=== PATIENT | female | born 1990 | race African-American/Black ===

== ENCOUNTER 2019-10-26 10:33 | Observation (INO) ==
[2019-10-26 11:58] LABS: Basophils % 0.4 % (0.0-0.8); Eosinophils # 0.2 10*3/uL (0.0-0.87); Eosinophils % 1.8 % (0.00-10.9); Hematocrit 37.2 VOL% (35.7-47.0); Hemoglobin 11.2 GM/DL (12.0-16.0); Immature Granulocytes % 0.4 %; Immature Granulocytes Absolute 0.04 #; Lymphocytes # 3.3 10*3/uL (1.4-4.0); Lymphocytes % 30.7 % (21.3-54.2); Mean Corpuscular HGB Conc 30.1 GM/DL (32-36); Mean Corpuscular Volume 81.6 FL (87-102); Mean Platelet Volume 9.6 FL (9.6-12.0); Monocytes % 7.1 % (1.7-12.7); Neutrophils % 59.6 % (38.7-73.9); Platelet Count 346 T/CUMM (130-400); Red Blood Count 4.56 MC/CUMM (3.8-5.5); Red Cell Distribution Width 13.9 % (9.3-17.3); White Blood Count 10.8 T/CUMM (4-12)
[2019-10-26 12:18] LABS: Alanine Aminotransferase 12 U/L (13-56); Albumin 2.9 G/DL (3.4-5.0); Alkaline Phosphatase 56 U/L (45-117); Aspartate Amino Transferase 10 U/L (0-37); Bilirubin,Total < 0.39 MG/DL (0.2-1.0); Blood Urea Nitrogen 8 MG/DL (7-18); Estimated Glom Filtration Rate 157 ML/MIN; Glucose 70 MG/DL (74-106); Osmolality,Calculated 272.5 MOS/KG (273-304); Total Protein 6.5 G/DL (6.4-8.3)
[2019-10-26 13:10] LABS: Apearance,Urine CLEAR (Clear); Bacteria,Urine Occasional /HPF (Few); Bilirubin,Urine Negative (Negative); Blood, Urine Negative (Negative); Glucose,Urine (UA) Negative (Negative); Ketones,Urine Negative (Negative); Nitrite,Urine Negative (Negative); Protein,Urine Negative; RBC,Urine 3 /HPF (0-4); Squamous Epithelial Cell,Urine Occasional /HPF (0-10); Urine Color Yellow (Yellow); Urine Specific Gravity 1.018 (1.001-1.035); Urine Urobilinogen < 2.0 EU/DL (0.2-1.0); WBC,Urine <1 /HPF (0-6)
[2019-10-26] MEDS ORDERED: MORPHINE 4 MG/1 ML VIAL IV STA (13:14)
[2019-10-26] MEDS ORDERED: ONDANSETRON 4 MG/2 ML VIAL IV STA (13:14)
[2019-10-26 14:48] LABS: Barbiturates Screen,Urine Negative (Negative); Benzodiazepines Screen,Urine Negative (Negative); Cannabinoid Screen,Urine Positive (Negative); Opiate Screen,Urine Negative (Negative); Phencyclidine Screen,Urine Negative (Negative)
[2019-10-26] MEDS ORDERED: ACETAMINOPHEN 325 MG TABLET PO PRN (14:50)
[2019-10-26] MEDS ORDERED: KETOROLAC 15 MG/1 ML VIAL IV PRN (14:50)
[2019-10-26] MEDS ORDERED: ONDANSETRON 4 MG/2 ML VIAL IV PRN (14:50)
[2019-10-26] MEDS: LACTATED RINGERS 1,000 ML IV SCH (17:07)
[2019-10-26] MEDS: amLODIPine 5 MG TABLET PO SCH (17:07)
[2019-10-26] MEDS: PIPERACILLIN/TAZOBACTAM 3,375 MG in SODIUM CHLORIDE 0.9% 100 ML IV SCH ×2 (17:07→22:45)
[2019-10-26] MEDS: DOCUSATE SODIUM 100 MG CAPSULE PO SCH (22:26)
[2019-10-26] MEDS: MAGNESIUM CITRATE 300 ML BOTTLE PO SCH (22:27)
[2019-10-27 03:57] LABS: Basophils % 0.3 % (0.0-0.8); Eosinophils # 0.3 10*3/uL (0.0-0.87); Eosinophils % 2.8 % (0.00-10.9); Hematocrit 34.1 VOL% (35.7-47.0); Hemoglobin 10.3 GM/DL (12.0-16.0); Immature Granulocytes % 0.2 %; Immature Granulocytes Absolute 0.02 #; Lymphocytes # 3.7 10*3/uL (1.4-4.0); Lymphocytes % 39.4 % (21.3-54.2); Mean Corpuscular HGB Conc 30.2 GM/DL (32-36); Mean Corpuscular Volume 79.7 FL (87-102); Mean Platelet Volume 10.6 FL (9.6-12.0); Monocytes % 6.7 % (1.7-12.7); Neutrophils % 50.6 % (38.7-73.9); Platelet Count 335 T/CUMM (130-400); Red Blood Count 4.28 MC/CUMM (3.8-5.5); White Blood Count 9.4 T/CUMM (4-12)
[2019-10-27 04:24] LABS: Albumin 2.5 G/DL (3.4-5.0); Bilirubin,Total 0.5 MG/DL (0.2-1.0); Calcium 8.4 MG/DL (8.5-10.1); Osmolality,Calculated 275.5 MOS/KG (273-304); Total Protein 5.7 G/DL (6.4-8.3)
[2019-10-27] MEDS: LACTATED RINGERS 1,000 ML IV SCH ×2 (05:47→21:58)
[2019-10-27] MEDS: PIPERACILLIN/TAZOBACTAM 3,375 MG in SODIUM CHLORIDE 0.9% 100 ML IV SCH ×2 (06:00→15:34)
[2019-10-27] MEDS ORDERED: PANTOPRAZOLE 40 MG TABLET PO SCH (09:00)
[2019-10-27] MEDS: amLODIPine 5 MG TABLET PO SCH (15:37)
[2019-10-27] MEDS: DOCUSATE SODIUM 100 MG CAPSULE PO SCH ×2 (15:37→21:55)
[2019-10-27] MEDS: MAGNESIUM CITRATE 300 ML BOTTLE PO SCH ×2 (15:37→21:54)
[2019-10-28] MEDS: PIPERACILLIN/TAZOBACTAM 3,375 MG in SODIUM CHLORIDE 0.9% 100 ML IV SCH ×2 (00:07→07:22)
[2019-10-28] MEDS ORDERED: LACTATED RINGERS 1,000 ML IV SCH (08:00)
[2019-10-28] MEDS ORDERED: propofoL 200 MG/20 ML VIAL IV ONE (09:00)
[2019-10-28] MEDS ORDERED: LIDOCAINE 100 MG/5 ML SYRINGE ONE (09:00)
[2019-10-28 12:21] VITALS: BP 126/82
[2019-10-28 14:42] LABS: Hepatitis B Core IgM Quant 0.14 Index; Hepatitis B Surface Ag Quant < 0.10 Index; Hepatitis B Surface Ag Result Negative (Negative); Hepatitis C Virus Ab Quant < 0.02 Index; Hepatitis C Virus Ab Result Negative (Negative)
[2019-11-04 17:10] LABS: Alpha-1-Antitrypsin, Serum 153 mg/dL (100 - 190)
== END 2019-10-28 16:30 | disposition home or self-care (01) ==
LOC: N.EDINP 10:33 → N.ED 10:33 → N.EDINP 15:50 → N.2W 16:27
PROVIDERS: ADMIT Surgery; ATTEND Surgery

== ENCOUNTER 2021-06-17 13:10 | Inpatient (IN) ==
[2021-06-17] MEDS ORDERED: ONDANSETRON 4 MG/2 ML VIAL IV STA ×2 (14:03→19:56)
[2021-06-17] MEDS ORDERED: HYDROmorphone 2 MG/1 ML VIAL IV STA ×2 (14:03→19:57)
[2021-06-17] MEDS ORDERED: SODIUM CHLORIDE 0.9% 1,000 ML IV STA ×2 (14:03→16:06)
[2021-06-17 15:50] LABS: Bilirubin,Urine Negative (Negative); Blood, Urine Negative (Negative); Glucose,Urine (UA) Negative (Negative); Hyaline Casts,Urine 1 /LPF (0-3); Ketones,Urine Negative (Negative); Mucus,Urine Few /LPF (Occasional); Nitrite,Urine Negative (Negative); Protein,Urine Negative; RBC,Urine 3 /HPF (0-4); Squamous Epithelial Cell,Urine Occasional /HPF (0-10); Urine Appearance CLEAR (Clear); Urine Color Yellow (Yellow); Urine Specific Gravity 1.025 (1.001-1.035)
[2021-06-17 16:00] LABS: Alanine Aminotransferase 10 U/L (13-56); Albumin 3.3 G/DL (3.4-5.0); Alkaline Phosphatase 61 U/L (45-117); Aspartate Amino Transferase 10 U/L (0-37); Bilirubin,Total < 0.39 MG/DL (0.20-1.00); Blood Urea Nitrogen 9 MG/DL (7-18); Calcium 8.8 MG/DL (8.5-10.1); Carbon Dioxide 26 MMOL/L (21-32); Estimated Glom Filtration Rate 130 ML/MIN; Glucose 81 MG/DL (74-106); Osmolality,Calculated 274.5 MOS/KG (273-304); Potassium 3.9 MMOL/L (3.5-5.1); Sodium 139 MMOL/L (136-145); Total Protein 7.1 G/DL (6.4-8.2)
[2021-06-17 16:03] LABS: Basophils % 0.3 % (0.0-0.8); Eosinophils # 0.1 10*3/uL (0.0-0.87); Eosinophils % 1.3 % (0.00-10.9); Hematocrit 34.1 VOL% (35.7-47.0); Hemoglobin 10.5 GM/DL (12.0-16.0); Immature Granulocytes % 0.3 %; Immature Granulocytes Absolute 0.03 #; Lymphocytes # 2.7 10*3/uL (1.4-4.0); Lymphocytes % 30.3 % (21.3-54.2); Mean Corpuscular HGB Conc 30.8 GM/DL (32-36); Mean Corpuscular Volume 75.1 FL (87-102); Mean Platelet Volume 10.9 FL (9.6-12.0); Monocytes % 5.8 % (1.7-12.7); Platelet Count 289 T/CUMM (130-400); Red Blood Count 4.54 MC/CUMM (3.8-5.5); Red Cell Distribution Width 16.9 % (9.3-17.3)
[2021-06-17] MEDS ORDERED: ceFAZolin 2,000 MG/50 ML DUPLEX IV ONE (18:58)
[2021-06-17] MEDS ORDERED: ceFAZolin 1,000 MG VIAL ONE ×2 (19:06→20:53)
[2021-06-17] MEDS: LACTATED RINGERS 1,000 ML IV SCH (19:20)
[2021-06-17] MEDS ORDERED: fentaNYL 100 MCG/2 ML VIAL ONE ×2 (19:36→20:54)
[2021-06-17] MEDS ORDERED: SUCCINYLCHOLINE 200 MG/10 ML VIAL ONE (19:40)
[2021-06-17] MEDS ORDERED: propofoL 200 MG/20 ML VIAL IV ONE (19:40)
[2021-06-17] MEDS ORDERED: LIDOCAINE 2% 5 ML VIAL ONE (19:40)
[2021-06-17] MEDS ORDERED: ROCURONIUM 50 MG/5 ML VIAL IV ONE (19:40)
[2021-06-17] MEDS ORDERED: ONDANSETRON 4 MG/2 ML VIAL ONE (20:12)
[2021-06-17] MEDS ORDERED: DEXAMETHASONE 4 MG/1 ML VIAL ONE (20:12)
[2021-06-17] MEDS ORDERED: SEVOFLURANE 1 UNIT/15 MINUTE INH ONE ×2 (20:53→22:16)
[2021-06-17 20:54] LABS: Barbiturates Screen,Urine Negative (Negative); Benzodiazepines Screen,Urine Negative (Negative); Cannabinoid Screen,Urine Negative (Negative); Opiate Screen,Urine Negative (Negative); Phencyclidine Screen,Urine Negative (Negative)
[2021-06-17] MEDS ORDERED: LACTATED RINGERS 1,000 ML IV ONE (21:02)
[2021-06-17] MEDS ORDERED: ONDANSETRON 4 MG/2 ML VIAL IV PRN ×2 (21:13→22:02)
[2021-06-17] MEDS ORDERED: SUGAMMADEX 200 MG/2 ML VIAL IV ONE (21:37)
[2021-06-17] MEDS ORDERED: BISACODYL 10 MG SUPP RECTAL PRN (22:02)
[2021-06-17] MEDS ORDERED: IBUPROFEN 800 MG TABLET PO PRN (22:02)
[2021-06-17] MEDS ORDERED: ACETAMINOPHEN 325 MG TABLET PO PRN (22:02)
[2021-06-17] MEDS ORDERED: BENZOCAINE/MENTHOL LOZENGE 18/BOX PO PRN (22:02)
[2021-06-17] MEDS: HYDROmorphone 2 MG/1 ML VIAL IV PRN ×3 (22:25→22:37)
[2021-06-17] MEDS ORDERED: LACTATED RINGERS 1,000 ML IV SCH (22:30)
[2021-06-17] MEDS ORDERED: MEPERIDINE 50 MG/1 ML VIAL IV PRN (23:24)
[2021-06-18] MEDS ORDERED: INFLUENZA VIRUS VACCINE 0.5 ML SYRINGE IM ONE (00:24)
[2021-06-18] MEDS: LACTATED RINGERS 1,000 ML IV SCH ×2 (03:08→12:15)
[2021-06-18] MEDS: ceFAZolin 2,000 MG/50 ML DUPLEX IV SCH ×2 (05:08→12:58)
[2021-06-18 06:55] LABS: Basophils % 0.2 % (0.0-0.8); Hematocrit 37.6 VOL% (35.7-47.0); Hemoglobin 11.1 GM/DL (12.0-16.0); Immature Granulocytes % 0.4 %; Immature Granulocytes Absolute 0.04 #; Lymphocytes # 1.5 10*3/uL (1.4-4.0); Lymphocytes % 13.3 % (21.3-54.2); Mean Corpuscular HGB Conc 29.5 GM/DL (32-36); Mean Corpuscular Volume 78.7 FL (87-102); Mean Platelet Volume 11.3 FL (9.6-12.0); Monocytes % 4.5 % (1.7-12.7); Neutrophils % 81.6 % (38.7-73.9); Platelet Count 280 T/CUMM (130-400); Red Blood Count 4.78 MC/CUMM (3.8-5.5); Red Cell Distribution Width 17.1 % (9.3-17.3); White Blood Count 11.1 T/CUMM (4-12)
[2021-06-18] MEDS: DOCUSATE SODIUM 100 MG CAPSULE PO PRN ×2 (09:24→20:43)
[2021-06-18] MEDS: MAGNESIUM HYDROXIDE SUSP 30 ML UDCUP PO PRN ×2 (09:24→20:43)
[2021-06-19] MEDS ORDERED: METOCLOPRAMIDE 10 MG TABLET PO SCH (08:00)
[2021-06-19 08:14] VITALS: BP 136/86
[2021-06-19] MEDS: MAGNESIUM HYDROXIDE SUSP 30 ML UDCUP PO PRN (10:20)
== END 2021-06-19 13:10 | disposition home or self-care (01) | DRG 547 ==
LOC: N.ED 13:10 → N.EDINP 13:10 → N.OB 20:10
PROVIDERS: ADMIT Obstetrics & Gynecology; ATTEND Obstetrics & Gynecology

== ENCOUNTER 2022-06-12 11:04 | Inpatient (IN) ==
[2022-06-12 11:59] LABS: Basophils % 0.4 % (0.0-0.8); Eosinophils # 0.1 10*3/uL (0.0-0.87); Eosinophils % 1.3 % (0.00-10.9); Hematocrit 27.4 VOL% (35.7-47.0); Hemoglobin 7.9 GM/DL (12.0-16.0); Immature Granulocytes % 1.7 %; Immature Granulocytes Absolute 0.14 #; Lymphocytes % 23.5 % (21.3-54.2); Mean Corpuscular HGB Conc 28.8 GM/DL (32-36); Mean Corpuscular Volume 72.9 FL (87-102); Mean Platelet Volume 11.1 FL (9.6-12.0); Monocytes # 0.6 10*3/uL (0.11-0.8); Monocytes % 6.8 % (1.7-12.7); NRBC # 0.02 10*3/uL; Neutrophils % 66.3 % (38.7-73.9); Platelet Count 256 T/CUMM (130-400); Red Blood Count 3.76 MC/CUMM (3.8-5.5); Red Cell Distribution Width 17.2 % (9.3-17.3); White Blood Count 8.3 T/CUMM (4-12)
[2022-06-12 12:08] LABS: Mucus,Urine Occasional /LPF (Occasional); Squamous Epithelial Cell,Urine Occasional /HPF (0-10)
[2022-06-12 12:09] LABS: Bilirubin,Urine Negative (Negative); Blood, Urine Negative (Negative); Glucose,Urine (UA) Negative (Negative); Ketones,Urine Negative (Negative); Nitrite,Urine Negative (Negative); Protein,Urine Negative (Negative); Urine Appearance Clear (Clear); Urine Color Yellow (Yellow)
[2022-06-12 12:15] LABS: INR 0.9; PT Patient Result 9.9 SECS (10.1-12.1); Partial Thromboplastin Time 29.1 SECS (23.7-32.9)
[2022-06-12 12:18] LABS: Anisocytosis 1+; Hypochromia 2+; Microcytosis 2+; Platelet Estimate Normal
[2022-06-12 12:25] LABS: Albumin 2.4 G/DL (3.4-5.0); Bilirubin,Direct 0.12 MG/DL (0.0-0.20); Bilirubin,Total 0.5 MG/DL (0.20-1.00); Calcium 8.6 MG/DL (8.5-10.1); Osmolality,Calculated 276.3 MOS/KG (273-304); Potassium 3.5 MMOL/L (3.5-5.1); Total Protein 6.3 G/DL (6.4-8.2); Uric Acid 4.5 MG/DL (2.6-6.0)
[2022-06-12 13:10] LABS: Protein/Creatinine Ratio,Urine 0.3 RATIO
[2022-06-12] MEDS ORDERED: METHYLERGONOVINE 0.2 MG/1 ML AMP IM PRN (13:19)
[2022-06-12] MEDS ORDERED: FAMOTIDINE 20 MG/2 ML VIAL IV ONE (13:19)
[2022-06-12] MEDS ORDERED: CARBOPROST TROMETHAMINE 250 MCG/ML AMP IM PRN (13:19)
[2022-06-12] MEDS ORDERED: miSOPROStoL 200 MCG TABLET RECTAL PRN (13:19)
[2022-06-12] MEDS ORDERED: CITRIC ACID/SODIUM CITRATE 30 ML UDCUP PO ONE (13:19)
[2022-06-12] MEDS ORDERED: OXYTOCIN/LR 20 UNIT/1,000 ML BAG IV ONE ×2 (13:19→16:39)
[2022-06-12] MEDS ORDERED: TRANEXAMIC ACID 1,000 MG in SODIUM CHLORIDE 0.9% 100 ML IV PRN (13:19)
[2022-06-12] MEDS ORDERED: ceFAZolin 3,000 MG in SYRINGE 1 EACH IV ONE (13:19)
[2022-06-12] MEDS: LACTATED RINGERS 1,000 ML IV SCH ×2 (13:33→14:50)
[2022-06-12] MEDS ORDERED: OXYTOCIN/LR 30 UNIT/1,000 ML BAG IV ONE ×2 (13:34→17:12)
[2022-06-12] MEDS ORDERED: miSOPROStoL 200 MCG TABLET ONE (13:40)
[2022-06-12] MEDS ORDERED: TRANEXAMIC ACID 1,000 MG/10 ML VIAL ONE (13:40)
[2022-06-12] MEDS ORDERED: SODIUM CHLORIDE 0.9% 0 ML IV ONE (13:40)
[2022-06-12] MEDS ORDERED: CARBOPROST TROMETHAMINE 250 MCG/ML AMP IM ONE (13:41)
[2022-06-12] MEDS ORDERED: OXYTOCIN 10 UNIT/ML VIAL IM ONE (13:47)
[2022-06-12] MEDS ORDERED: buprenorphine HCL 0.3 MG/ML VIAL ONE (14:53)
[2022-06-12] MEDS ORDERED: DEXMEDETOMIDINE 200 MCG/2 ML VIAL ONE (14:53)
[2022-06-12] MEDS ORDERED: ONDANSETRON 4 MG/2 ML VIAL ONE (15:11)
[2022-06-12] MEDS ORDERED: PHENYLEPHRINE 1 MG/10 ML SYRINGE IV ONE (15:26)
[2022-06-12] MEDS ORDERED: LACTATED RINGERS 1,000 ML IV ONE (15:26)
[2022-06-12] MEDS ORDERED: SODIUM CHLORIDE 0.9% 1,000 ML IV PRN (15:35)
[2022-06-12 15:50] LABS: Cord Arterial Blood HCO3 22.1 MMOL/L
[2022-06-12 15:53] LABS: Cord Venous Blood HCO3 22.8 MMOL/L; Cord Venous Blood PCO2 62.1 MMHG; Cord Venous Blood PO2 23.8
[2022-06-12 15:55] LABS: Cord Arterial Blood HCO3 22.2 MMOL/L
[2022-06-12 15:59] LABS: Cord Venous Blood PCO2 58.6 MMHG
[2022-06-12 16:03] LABS: Bilirubin,Urine Negative (Negative); Blood, Urine Negative (Negative); Glucose,Urine (UA) Negative (Negative); Ketones,Urine Negative (Negative); Mucus,Urine Occasional /LPF (Occasional); Nitrite,Urine Negative (Negative); Protein,Urine Negative (Negative); Squamous Epithelial Cell,Urine Occasional /HPF (0-10); Urine Appearance CLEAR (Clear); Urine Color Straw (Yellow); Urine Specific Gravity 1.006 (1.001-1.035); Urine Urobilinogen < 2.0 eU/dL (<2.0)
[2022-06-12] MEDS ORDERED: FUROSEMIDE 20 MG/2 ML VIAL ONE (16:19)
[2022-06-12] MEDS ORDERED: SODIUM CHLORIDE 0.9% 1,000 ML IV ONE (16:19)
[2022-06-12] MEDS ORDERED: RHO(D) IMMUNE GLOBULIN 300 MCG SYRINGE IM ONE (16:39)
[2022-06-12] MEDS ORDERED: ACETAMINOPHEN 325 MG TABLET PO PRN (16:39)
[2022-06-12] MEDS ORDERED: IBUPROFEN 800 MG TABLET PO PRN (16:39)
[2022-06-12] MEDS ORDERED: ONDANSETRON 4 MG/2 ML VIAL IV PRN (16:39)
[2022-06-12 16:43] LABS: Barbiturates Screen,Urine Negative (Negative); Benzodiazepines Screen,Urine Negative (Negative); Cannabinoid Screen,Urine Negative (Negative); Opiate Screen,Urine Negative (Negative); Phencyclidine Screen,Urine Negative (Negative)
[2022-06-12] MEDS ORDERED: LACTATED RINGERS 1,000 ML IV SCH (17:00)
[2022-06-12] MEDS: ACETAMINOPHEN 500 MG TABLET PO SCH (20:03)
[2022-06-12 20:13] LABS: Hematocrit 33.4 VOL% (35.7-47.0)
[2022-06-12] MEDS ORDERED: NIFEdipine 10 MG CAPSULE PO ONE (20:32)
[2022-06-12] MEDS ORDERED: FUROSEMIDE 20 MG/2 ML VIAL IV ONE (20:38)
[2022-06-12] MEDS: IBUPROFEN 800 MG TABLET PO SCH (20:53)
[2022-06-12] MEDS ORDERED: FUROSEMIDE 40 MG/4 ML VIAL IV ONE (21:00)
[2022-06-12] MEDS: DOCUSATE SODIUM 100 MG CAPSULE PO SCH (21:08)
[2022-06-13] MEDS: ACETAMINOPHEN 500 MG TABLET PO SCH ×2 (01:53→06:19)
[2022-06-13] MEDS: IBUPROFEN 800 MG TABLET PO SCH ×3 (03:53→18:03)
[2022-06-13 05:28] LABS: Basophils % 0.3 % (0.0-0.8); Eosinophils # 0.1 10*3/uL (0.0-0.87); Eosinophils % 0.7 % (0.00-10.9); Hematocrit 29.6 VOL% (35.7-47.0); Immature Granulocytes % 0.8 %; Immature Granulocytes Absolute 0.09 #; Lymphocytes # 2.3 10*3/uL (1.4-4.0); Lymphocytes % 19.9 % (21.3-54.2); Mean Corpuscular HGB Conc 30.4 GM/DL (32-36); Mean Corpuscular Volume 73.6 FL (87-102); Monocytes # 0.7 10*3/uL (0.11-0.8); Monocytes % 6.3 % (1.7-12.7); Platelet Count 218 T/CUMM (130-400); Red Blood Count 4.02 MC/CUMM (3.8-5.5); Red Cell Distribution Width 17.5 % (9.3-17.3); White Blood Count 11.5 T/CUMM (4-12)
[2022-06-13] MEDS: MULTIVITAMIN (PRENATAL) TABLET PO SCH (10:16)
[2022-06-13] MEDS: SIMETHICONE CHEW 80 MG TABLET PO PRN (10:17)
[2022-06-13] MEDS: DOCUSATE SODIUM 100 MG CAPSULE PO SCH ×2 (10:17→20:55)
[2022-06-13] MEDS: MAGNESIUM HYDROXIDE SUSP 30 ML UDCUP PO PRN ×2 (10:17→20:55)
[2022-06-13] MEDS: IBUPROFEN 800 MG TABLET PO PRN (16:19)
[2022-06-13] MEDS: BISACODYL 10 MG SUPP RECTAL PRN (18:59)
[2022-06-13] MEDS: METOCLOPRAMIDE 10 MG TABLET PO SCH (20:55)
[2022-06-14] MEDS: MAGNESIUM HYDROXIDE SUSP 30 ML UDCUP PO PRN ×2 (10:07→21:24)
[2022-06-14] MEDS: MULTIVITAMIN (PRENATAL) TABLET PO SCH (10:07)
[2022-06-14] MEDS: SIMETHICONE CHEW 80 MG TABLET PO PRN (10:08)
[2022-06-14] MEDS: DOCUSATE SODIUM 100 MG CAPSULE PO SCH ×2 (10:08→21:24)
[2022-06-14] MEDS: METOCLOPRAMIDE 10 MG TABLET PO SCH (10:08)
[2022-06-14] MEDS: BISACODYL 10 MG SUPP RECTAL PRN (11:44)
[2022-06-14] MEDS: METOCLOPRAMIDE 10 MG/2 ML VIAL IV SCH (15:52)
[2022-06-15] MEDS: METOCLOPRAMIDE 10 MG/2 ML VIAL IV SCH ×3 (01:16→15:34)
[2022-06-15] MEDS: IBUPROFEN 800 MG TABLET PO PRN (06:06)
[2022-06-15 10:09] VITALS: BP 149/87
[2022-06-15] MEDS: DOCUSATE SODIUM 100 MG CAPSULE PO SCH (10:51)
[2022-06-15] MEDS: MULTIVITAMIN (PRENATAL) TABLET PO SCH (10:51)
== END 2022-06-15 14:10 | disposition home or self-care (01) | DRG 539 ==
LOC: N.LDOUT 11:04 → N.LD 11:07 → N.OB 22:00
PROVIDERS: ADMIT Obstetrics & Gynecology; ATTEND Obstetrics & Gynecology